=== PATIENT | male | born 1960 | race Caucasian/White ===

== ENCOUNTER 2022-10-18 15:25 | Outpatient (CLI) | payer OTHER, SELFPAY ==
[2022-10-18 22:28] LABS: Microalbumin Urine 6 mg/dL
[2022-10-18 22:32] LABS: Creatinine Urine 121.1 mg/dL; Microalbumin Creatinine Ratio 40 mg/g (0-30)
[2022-10-18 22:40] LABS: Chloride* 102 mmol/L (96-114); Potassium* 5.1 mmol/L (3.6-5.1); Sodium* 135 mmol/L (135-149)
[2022-10-18 22:43] LABS: Blood Urea Nitrogen* 22 mg/dL (7-30); Calcium* 8.9 mg/dL (8.4-10.6); Carbon Dioxide* 27 mmol/L (20-32); Creatinine* 1.5 mg/dL (0.5-1.5); Estimated Glomerular Filt Rate 52 ml/min
[2022-10-19 04:34] LABS: Glucose* 88 mg/dL (60-115)
== END 2022-10-18 15:26 | disposition home or self-care (01) ==
PROVIDERS: Visit Provider Physician Assistant Medical
DX: I10 Essential (primary) hypertension (principal); E03.9 Hypothyroidism, unspecified
CPT/HCPCS: 80048; 82043; 82570

== ENCOUNTER 2023-07-08 09:38 | Outpatient (CLI) | payer OTHER, SELFPAY | END 2023-07-08 09:39 | disposition home or self-care (01) | LOC: NFLDREF 07-13 07:46 | PROVIDERS: PCP Physician Assistant Medical; Referring Provider Physician Assistant Medical; Visit Provider Internal Medicine Nephrology | DX: E78.5 Hyperlipidemia, unspecified (principal); I10 Essential (primary) hypertension; N18.9 Chronic kidney disease, unspecified; E03.9 Hypothyroidism, unspecified; L70.9 Acne, unspecified; Z12.5 Encounter for screening for malignant neoplasm of prostate | CPT/HCPCS: 80061; 80069; 82043; 82310; 82570; 83520; 83970; 84165; 84450; 84460; 84550; 86140; 86334 ==

== ENCOUNTER 2023-12-15 11:27 | Outpatient (CLI) | payer OTHER, SELFPAY | END 2023-12-15 11:28 | disposition home or self-care (01) | PROVIDERS: PCP Physician Assistant Medical; Visit Provider Emergency Medicine | DX: R10.9 Unspecified abdominal pain (principal) | CPT/HCPCS: 80048; 80076; 83690 ==

== ENCOUNTER 2023-12-16 11:00 | Outpatient (CLI) | payer OTHER, SELFPAY | END 2023-12-16 11:01 | disposition home or self-care (01) | LOC: NFLDREF 12-23 08:42 | PROVIDERS: PCP Physician Assistant Medical; Referring Provider Physician Assistant Medical; Visit Provider Emergency Medicine | DX: R10.13 Epigastric pain (principal) | CPT/HCPCS: 87338 ==

== ENCOUNTER 2023-12-27 09:30 | Outpatient (CLI) | payer OTHER, SELFPAY | END 2023-12-27 09:31 | disposition home or self-care (01) | LOC: NFLDREF 12-28 08:03 | PROVIDERS: PCP Physician Assistant Medical; Referring Provider Physician Assistant Medical; Visit Provider Internal Medicine Nephrology | DX: E03.9 Hypothyroidism, unspecified (principal); E78.5 Hyperlipidemia, unspecified; I10 Essential (primary) hypertension; N18.9 Chronic kidney disease, unspecified | CPT/HCPCS: 80061; 80069; 82043; 82310; 82570; 83970; 84439; 84443; 84450; 84460; 84550 ==

== ENCOUNTER 2024-01-03 12:11 | Outpatient (CLI) | payer OTHER, SELFPAY | END 2024-01-03 12:12 | disposition home or self-care (01) | LOC: NFLDREF 01-04 07:19 | PROVIDERS: PCP Physician Assistant Medical; Referring Provider Physician Assistant Medical; Visit Provider Internal Medicine Nephrology | DX: I12.9 Hypertensive chronic kidney disease with stage 1 through stage 4 chronic kidney disease, or unspecified chronic kidney disease (principal); N18.2 Chronic kidney disease, stage 2 (mild); R80.9 Proteinuria, unspecified | CPT/HCPCS: 82043; 82570 ==

== ENCOUNTER 2024-07-10 09:33 | Outpatient (CLI) | payer OTHER, SELFPAY | END 2024-07-10 09:34 | disposition home or self-care (01) | LOC: NFLDREF 07-13 11:22 | PROVIDERS: PCP Physician Assistant Medical; Referring Provider Physician Assistant Medical; Visit Provider Internal Medicine Nephrology | DX: I10 Essential (primary) hypertension (principal); E03.9 Hypothyroidism, unspecified; N18.9 Chronic kidney disease, unspecified; R80.9 Proteinuria, unspecified | CPT/HCPCS: 80061; 80069; 82043; 82570; 82607; 82746; 83540; 83550; 84439; 84443; 84450; 84460; 84550; 87086; G0103 ==

== ENCOUNTER 2025-01-08 09:50 | Outpatient (CLI) | payer OTHER, SELFPAY | END 2025-01-08 09:51 | disposition home or self-care (01) | LOC: NFLDREF 01-12 00:28 | PROVIDERS: PCP Physician Assistant Medical; Referring Provider Physician Assistant Medical; Visit Provider Internal Medicine Nephrology | DX: N18.9 Chronic kidney disease, unspecified (principal); I10 Essential (primary) hypertension; R80.9 Proteinuria, unspecified; D64.9 Anemia, unspecified; E03.9 Hypothyroidism, unspecified; Z12.5 Encounter for screening for malignant neoplasm of prostate | CPT/HCPCS: 80069; 80076; 82043; 82570; 83970; 84439; 84443; 84550; 86140; G0103 ==

== ENCOUNTER 2025-01-15 11:23 | Outpatient (CLI) | payer OTHER, SELFPAY | END 2025-01-15 11:24 | disposition home or self-care (01) | LOC: NFLDREF 11:23 | PROVIDERS: PCP Physician Assistant Medical; Visit Provider Internal Medicine Nephrology | DX: E78.5 Hyperlipidemia, unspecified (principal) | CPT/HCPCS: 80061 ==

== ENCOUNTER 2025-07-09 09:18 | Outpatient (CLI) | payer OTHER, SELFPAY | END 2025-07-09 09:19 | disposition home or self-care (01) | LOC: LKVREF 14:40 | PROVIDERS: PCP Physician Assistant Medical; Referring Provider Physician Assistant Medical; Visit Provider Internal Medicine Nephrology | DX: I12.9 Hypertensive chronic kidney disease with stage 1 through stage 4 chronic kidney disease, or unspecified chronic kidney disease (principal); N18.9 Chronic kidney disease, unspecified; R80.9 Proteinuria, unspecified | CPT/HCPCS: 80061; 80069; 82043; 82570; 82728; 83540; 83550; 83970; 84450; 84460; 84550; 86140; G0103 ==